=== PATIENT | male | born 1980 | race American Indian/Alaskan Native ===

== ENCOUNTER 2018-01-11 23:34 | Emergency (ER) | payer MEDICAID ==
[2018-01-12] MEDS ORDERED: MOTRIN ONE (03:01)
[2018-01-12] MEDS ORDERED: MOTRIN PO ONE (03:01)
--- NOTE | 2018-01-12 03:26 | Emergency Department Report ---
ED Upper Extremity Inj HPI - General Chief Complaint: Shoulder Injury Stated Complaint: RT SHOULDER PAIN Time Seen by Provider: 01/12/18 03:25 Source: patient Mode of arrival: Ambulatory Limitations: No Limitations - History of Present Illness Initial Comments: Patient has injury earlier this evening, with x-ray showing dislocation of right shoulder. 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 Patient has a history of prior dislocation, reporting that he has done this twice. He has not had any operations. 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 - Surgical History Past Surgical History?: No - Social History Smoking Status: Never Smoker Substance Use Type: None - Medications Home Medications: Home Medications Medication Instructions Recorded Confirmed Last Taken Type HYDROcodone/APAP 5-325 [Julian 1 each PO Q4HR PRN #20 tablet 01/12/18 Unknown Rx 5/325] ED Physical Exam - General Limitations: No Limitations ED Course Vital Signs 01/12/18 01/12/18 02:54 04:10 Temperature 36.5 C Temperature [ 36.7 C Intra-Procedure ] Temperature [ 36.6 C Post-Procedure] Temperature [ 36.7 C Pre-Procedure] Pulse Rate 60 Pulse Rate [ 63 Intra-Procedure ] Pulse Rate [ 60 Post-Procedure] Pulse Rate [Pre 69 -Procedure] Respiratory 16 Rate Respiratory 18 Rate [Intra- Procedure] Respiratory 18 Rate [Post- Procedure] Respiratory 18 Rate [Pre- Procedure] Blood Pressure 136/80 Blood Pressure 124/69 [Intra- Procedure] Blood Pressure 121/69 [Post-Procedure ] Blood Pressure 110/79 [Pre-Procedure] O2 Sat by Pulse 98 Oximetry O2 Sat by Pulse 100 Oximetry [ Intra-Procedure ] O2 Sat by Pulse 100 Oximetry [Post -Procedure] - Reevaluation(s) Reevaluation #1: 01/12/18 04:45 Patient sleeping comfortable, rechecked on relocation, has normal neurovascular status, good sensation around the shoulder area, 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, warm fingers, normal capillary refill - Moderate Sedation Indications: fracture/dislocation redu ASA Class: II Mallampati Airway Score: 1 Time of Last PO Intake: 20:00 Preparation: clinical research monitor applied, pulse oximeter, supplemental O2 applied, reversal agents at bedside, suction/airway equipment at bedside, IV secured Midazolam: IV Midazolam Dose: 4 Dosage Used (#mgs): 4 Complications: none Patient Tolerated Procedure: well - Orthopedic Joint Reduction Joint #1 Time Out Performed: Yes Side: right Joint Reduction Location: shoulder Analgesia: moderate sedation Shoulder Technique Used (if applicable): external rotation Post-Reduction Neuro Exam: intact Post-Reduction Vascular Exam: intact Post Reduction X-Ray Obtained: Yes Post Reduction X-Ray Results: reduced Splint Applied: Yes ED Medical Decision Making - Radiology Data Radiology results: report reviewed (initial x-ray reviewed, showing anterior inferior dislocation of shoulder without fracture) Post reduction film shows normal alignment of right humerus and the glenohumeral socket, with no evidence of fracture to the humerus itself. No other fracture seen elsewhere on the visualized portion of the right shoulder. Critical Care Time: No Critical care attestation.: If time is entered above; I have spent that time in minutes in the direct care of this critically ill patient, excluding procedure time. ED Disposition Clinical Impression: Shoulder dislocation, recurrent Qualifiers: Laterality: right Qualified Code(s): M24.411 - Recurrent dislocation, right shoulder Disposition: TO HOME OR SELFCARE Is pt being admited?: No Does the pt Need Aspirin: No Condition: Stable Prescriptions: HYDROcodone/APAP 5-325 [Julian 5/325] 1 each PO Q4HR PRN #20 tablet PRN Reason: Pain Referrals: WILIAM RODRIGUEZ MD [Staff Physician] - 3-5 Days Forms: Work/School Release Form(ED) Time of Disposition: 04:46
--- NOTE | 2018-01-12 03:35 | XRay Report ---
FINAL REPORT PROCEDURE: XR SHOULDER 2+V RT TECHNIQUE: RIGHT shoulder radiographs including AP views in internal and external rotation. CPT 27863 HISTORY: Right shoulder pain COMPARISON: No prior studies are available for comparison. FINDINGS: There is an anterior inferior dislocation of the humerus in relation to the glenoid. No fracture is noted. IMPRESSION: Anterior inferior dislocation.
[2018-01-12] MEDS ORDERED: VERSED IV NR (04:00)
--- NOTE | 2018-01-12 04:49 | XRay Report ---
FINAL REPORT PROCEDURE: XR SHOULDER 1V RT TECHNIQUE: RIGHT shoulder radiograph, single frontal view. HISTORY: postreduction COMPARISON: Earlier the same date FINDINGS: The dislocation has been reduced. No fracture is identified. IMPRESSION: Reduced dislocation
[2018-01-12 05:30] VITALS: BP 116/68
== END 2018-01-12 06:07 | disposition home or self-care (01) ==
LOC: ED 23:34
DX: M24.411 Recurrent dislocation, right shoulder (principal)
CPT/HCPCS: 23650; 73020; 73030; 96374; 99283; J2250